=== PATIENT | male | born 1945 | race Caucasian/White ===

== ENCOUNTER 2016-11-22 15:00 | Inpatient (IN) | payer MEDICARE, OTHER ==
[~2016-11-22] VITALS: Ht 185.4 cm; Wt 94.0 kg
--- NOTE | ~2016-11-22 | HP ---
PATIENT'S NAME: KUN TRIVEDI [facility] AGE: 71 Y [address] ROOM: [place] [address] LOCATION: CU ADMIT DATE: 11/22/2016 History & Physical DISCHARGE DATE: FAMILY PHYSICIAN: PHYSICIAN, UNKNOWN ATTENDING PHYSICIAN: Gemini LEOS DATE OF SERVICE: CHIEF COMPLAINT: GI bleed. 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 The patient presented to [facility] with few-day history of dark stool, shortness of breath, weakness, and back pain. In the emergency department, the patient was noted to have hemoglobin of 5.3. The patient was given 2 units packed red blood cell and was transferred to our hospital for GI evaluation. En route to our hospital, the patient was noted to have coffee-grounds emesis x2. The patient reports that for the past 10 days he has been having some dark stool. He denies any use of NSAID. He currently takes aspirin and Xarelto for his coronary artery disease and atrial flutter. The patient also reports of some lower back pain that radiates to his groin area. He reports that he has been having this pain for the past week or so. He reports that he thought this was due to his new medication of Entresto. The patient denies fever, chest pain, abdominal pain, headache, orthopnea, lower extremity edema, productive cough, or fall. Of note, the patient has a history of atrial flutter and was ablated in the past. However, the patient failed ablation and had recent ICD shock in May and was found to have atrial flutter and was started on Xarelto. He takes 20 mg of Xarelto daily. Last dose taken yesterday evening. MEDICAL HISTORY: 1. Coronary artery disease. 2. Ischemic cardiomyopathy. 3. Atrial flutter. 4. Diabetes mellitus type 2. 5. Gout. SURGICAL HISTORY: 1. CABG. 2. Ablation. 3. WILDLIFE REMOVAL SPECIALIST-D placement. PATIENT'S NAME: KUN TRIVEDI [facility] AGE: 71 Y [address] ROOM: [place] [address] LOCATION: GICU ADMIT DATE: 11/22/2016 History & Physical DISCHARGE DATE: FAMILY PHYSICIAN: PHYSICIAN, UNKNOWN ATTENDING PHYSICIAN: Gemini LEOS FAMILY HISTORY: Father of coronary artery disease. 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 He is a former smoker, quit in 2003. He denies current use of alcohol. His last alcohol use was in 2009. He has three kids, lives with his , and he has seven grandchildren. ALLERGY: No known drug allergies. MEDICATION: He takes, 1. Xarelto 15 mg. 2. Furosemide 20 mg. 3. Lipitor 40 mg. 4. Coreg 25 mg. 5. Takes DuoNeb as needed. 6. Tylenol 50 mg. 7. Aspirin 80 mg. 8. Entresto 25/26 one tab twice a day. 9. Amaryl 2 mg. 10. Spironolactone 25 mg. 11. Flonase. 12. Allopurinol 300 mg a day. REVIEW OF SYSTEMS: All systems have been reviewed and are negative except for what mentioned in the HPI. PHYSICAL EXAMINATION: VITAL SIGNS: Afebrile, blood pressure 96/41, heart rate of 70, saturating 99% on room air, respiratory rate of 12. GENERAL APPEARANCE: The patient is alert and awake, in no acute distress. HEAD: Normocephalic, atraumatic. NOSE: The patient has NG tube placement draining coffee-grounds emesis mixed with some bright blood. ORAL: Throat, dry oral mucosa. NECK: No JVD. CHEST: Clear to auscultation bilaterally. HEART: Regular rate and rhythm. No MRG. ABDOMEN: Soft, nontender, and nondistended. Bowel sounds present. SKIN: Warm to touch. No obvious skin lesion noted. EXTREMITY: No edema. PATIENT'S NAME: KUN TRIVEDI [facility] AGE: 71 Y [address] ROOM: [place] [address] LOCATION: GICU ADMIT DATE: 11/22/2016 History & Physical DISCHARGE DATE: FAMILY PHYSICIAN: PHYSICIAN, UNKNOWN ATTENDING PHYSICIAN: Gemini LEOS GENERATION MANAGER: Alert and oriented x3. Motor and sensory grossly intact. MUSCULOSKELETAL: Range of motion intact. No obvious effusion noted. LABORATORY DATA: The patient's initial hemoglobin at [facility] was 5.3, he received 2 units of packed red blood cells. Hemoglobin level after transfusion is 7.2 with hematocrit of 23.4 and white blood cell count of 11.8, platelets of 231. Lactate of 3.8. ProBNP of 595. BUN of 105, creatinine of 1.7, sodium of 142, potassium 5.1, chloride of 111, CO2 of 19, and calcium of 7.9. Albumin of 3. EKG shows paced with no obvious ischemic ST and T-wave changes. Chest x-ray shows mild left basilar atelectasis. ASSESSMENT AND PLAN: The patient is a 71-year-old, pleasant gentleman with past medical history of coronary artery disease, status post bypass and PCI; CHF with systolic dysfunction with WILDLIFE REMOVAL SPECIALIST-D; atrial flatter, discontinue Coumadin, on Xarelto, who presents here from outside hospital with GI bleed. Etiology of GI bleed most likely secondary to upper gastrointestinal bleed. 1. Anemia of blood loss, etiology secondary to upper GI bleed. The patient presented with a hemoglobin of 5.3, etiology secondary to Xarelto use and aspirin. From the history as the patient complained of some vague back pain radiating to the abdomen, the patient might have peptic ulcer disease causing his GI bleed. The patient currently on Protonix drip and octreotide drip. Withholding aspirin and Xarelto. Transfusion, the patient has had 2 units of packed red blood cells. We will also transfuse 3 more packed red blood cells. To keep hemoglobin between 9 to 10 as the patient has significant history of coronary artery disease. GI is consulted. The patient is scheduled for possible EGD this evening. The patient currently stable. NG tube shows coffee-ground emesis mixed with some bright red blood cell. We will continue H and H. We will check H and H 1 hour after transfusion and also to check H and H every 6 hours. 2. Gastrointestinal bleed. See above. 3. Ischemic cardiomyopathy. The patient currently is appears compensated. ProBNP is elevated, but when age adjusted, it is normal for age. We will keep the patient on continuous O2 saturation monitoring and frequent physical examination. We will hold any hypertensive medication or heart failure medication for now. We will follow the patient closely. 4. Coronary artery disease, status post PCI and CABG. Last aspirin use yesterday. EKG does not show any ischemic changes. The patient denies of chest pain. We will hold aspirin for now until EGD is done and region has been re-evaluated. 5. Atrial flutter. Holding Xarelto due to ongoing GI bleed. 6. Diabetes mellitus type 2. We will hold Amaryl. We will have the patient PATIENT'S NAME: KUN TRIVEDI [facility] AGE: 71 Y [address] ROOM: [id number] [place], [place] [address] LOCATION: [facility] ADMIT DATE: 11/22/2016 History & Physical DISCHARGE DATE: FAMILY PHYSICIAN: PHYSICIAN, UNKNOWN ATTENDING PHYSICIAN: Gemini LEOS on a.c., h.s., and sliding scale insulin. The patient currently n.p.o. 7. Acute kidney injury. The patient's creatinine in the past is 1. At outside hospital, his creatinine was 1.9 and currently 1.7. Etiology most likely secondary to prerenal due to anemia. We will treat underlying etiology. 8. Gout. Stable. Holding allopurinol. 9. Chronic obstructive pulmonary disease, stable. Will have DuoNeb as needed. I have personally reviewed the patient's medical record including but not limited to blood work and radiology report. Total time spent with the patient is greater than 60 minutes, more than 50% of the time spent in direct patient care and patient consultation. Case reviewed with the patient. The patient understands the risk of stopping aspirin and Xarelto. Case was also discussed with nursing staff. All questions were answered to the patient's satisfaction. Case also was discussed with GI nurse practitioner. The patient currently admitted in the ICU, will continue treatment stated as above, to have EGD this a.m.; if EGD unrevealing, might consider other venues including CT abdomen with contrast as a diagnostic and therapeutic with IR. MD ALEKSANDR ROACH/farideh /[id number] T: [id number] HISTORY & PHYSICAL
--- NOTE | ~2016-11-22 | DS ---
PATIENT'S NAME: KUN TRIVEDI [facility] AGE: 71 Y [address] ROOM: [id number] [place], [place] [address] LOCATION: GPCU ADMIT DATE: 11/22/2016 Discharge Summary DISCHARGE DATE: 11/26/2016 FAMILY PHYSICIAN: Jose Franz MD ATTENDING PHYSICIAN: Gemini LEOS PRINCIPAL DIAGNOSES: 1. Acute blood loss anemia. 2. Upper gastrointestinal bleed. 3. Acute kidney injury. 4. Heart failure with reduced ejection, compensated, status post cardiac resynchronization therapy defibrillator. 5. Type 2 diabetes mellitus. 6. Obstructive sleep apnea. 7. Atrial flutter with controlled ventricular rates. HOSPITAL COURSE: A 71-year-old very pleasant gentleman was admitted to the hospital with chief complaint of melena and hematemesis. On initial evaluation, he was found to be in acute blood loss anemia with a hemoglobin around 6 as well as MAHOGANY with creatinine elevating to 1.8. He was gently volume hydrated and was given packed red blood cells transfusions. Gastroenterology consultation was obtained; and an upper endoscopy was done, which did reveal Dieulafoy's lesion in the stomach, which was injected with epinephrine and later another upper endoscopy was done and he was clipped in that lesion. Postprocedurally, he done well. His creatinine improved. He did not have anymore melena or hematemesis. His hemoglobin remained stable. We restarted him on Xarelto per GI consultation. He was given 2 units of packed red blood cells before discharge because he was at increased risk of bleeding from his lesion being on Xarelto. He will follow up with his primary care physician tomorrow with a hemoglobin as well as a BMP to check for the creatinine. No medication changes were made on the discharge except addition of Protonix 40 mg p.o. b.i.d. DISCHARGE MEDICATIONS: Include: 1. Allopurinol 300 mg p.o. everyday. 2. Lipitor 40 mg p.o. everyday. 3. Carvedilol 25 mg p.o. every morning. 4. Fluticasone Flonase 50 mcg puff inhalation 1 spray per nose everyday. 5. Fexofenadine 180 mg p.o. every morning. 6. Xarelto 15 mg p.o. everyday. 7. Torsemide 40 mg p.o. every morning. 8. Spironolactone 25 mg p.o. everyday. 9. DuoNebs inhalation twice daily. 10. Tylenol 1000 mg p.o. every 6 hours for pain. 11. Aspirin 81 mg p.o. everyday. PATIENT'S NAME: KUN TRIVEDI [facility] AGE: 71 Y [address] ROOM: [place] [address] LOCATION: GPCU ADMIT DATE: 11/22/2016 Discharge Summary DISCHARGE DATE: 11/26/2016 FAMILY PHYSICIAN: Jose Franz MD ATTENDING PHYSICIAN: Gemini LEOS 12. Entresto 24 mg/26 mg 1 tablet p.o. twice daily. 13. Glimepiride 2 mg p.o. twice daily. 14. New medication Protonix 40 mg p.o. b.i.d. HEMODYNAMICS ON DISCHARGE: Stable. ACTIVITY: As tolerated. DIET: Cardiac diet. FOLLOW UP: Follow up with the primary care physician tomorrow with a BMP and a CBC. The risk of bleeding was explained to the patient given he is on Xarelto. The patient accepted the risks and wanted to go ahead and start the Xarelto, which was started in consultation with Gastroenterology. Total time spent in discharge planning and coordinating as well providing counselling to patient specially regarding high risk of bleeding by being on Xarelto was 35 minutes. MD LUANN NIELSEN/farideh /[id number] d: 11/27/16 0048 t: 12/06/16 1243, DISCHARGE SUMMARY
--- NOTE | ~2016-11-22 | CON ---
PATIENT'S NAME: KUN TRIVEDI [facility] AGE: 71 Y [address] ROOM: [address] [address] LOCATION: GICU ADMIT DATE: 11/22/2016 Consultation DISCHARGE DATE: FAMILY PHYSICIAN: PHYSICIAN, UNKNOWN ATTENDING PHYSICIAN: Gemini LEOS DATE OF CONSULTATION: 11/22/2016 REFERRING PHYSICIAN: LISETH DEVRIES MD REFERRING PROVIDER: Estefany Singletary M.D. REASON FOR CONSULTATION: Upper GI bleed. HISTORY OF PRESENT ILLNESS: This is a very pleasant, 71-year-old male, who was transferred from [facility]. The patient states that over the past 10 days he has been experiencing black tarry stools accompanied with back pain that began approximately 2 days ago. At that time, he did experience hematemesis that was coffee ground in appearance. He previously had been seen by his Cardiology as he does have history of CABG as well as cardiac stents and pacemaker placement and is on Xarelto. At that time, approximately a week ago, he was noted to have a "low hemoglobin" per the family with mixed reports with his hemoglobin running at 10. When he was evaluated at the outside facility, his hemoglobin was found to be 5.3. While being evaluated at the outside facility, he did have a large another emesis that was more bright red in color. The patient was then transferred to [facility] for further evaluation. The patient was seen and examined. He does have an NG tube to low intermittent suction at this point that is maroon and alicia blood colored. He denies any alicia abdominal pain. No associated nausea or vomiting at this time. The patient is hemodynamically stable. He denies any history of an upper endoscopy. He does state that he had a colonoscopy greater than 10 years ago with polyps removed. His last Xarelto dose was approximately a day ago. He also states that his bean sprout laborer put him on Entresto as well as changed his Lasix; as he does contribute most of his symptoms to this. Currently denies any chest pain or chest pressure. He did experience lightheadedness at home. He currently has been placed on Protonix and octreotide drip. PAST MEDICAL HISTORY: Hypercholesterolemia, hypertension, history of cardiac stents, history of CABG, congestive heart failure, AICD defibrillator placement, and history of myocardial infarction. He does wear home oxygen as well as a CPAP at night. PATIENT'S NAME: KUN TRIVEDI [facility] AGE: 71 Y [address] ROOM: [id number] [place], [place] [address] LOCATION: GICU ADMIT DATE: 11/22/2016 Consultation DISCHARGE DATE: FAMILY PHYSICIAN: PHYSICIAN, UNKNOWN ATTENDING PHYSICIAN: Gemini LEOS COPD, arthritis, skin cancer removed from his nose in 2003, diabetes mellitus type 2, and CAD. PAST SURGICAL HISTORY: CABG, 2-vessel; cardiac stents x3; "kidney stone blast"; AICD/pacemaker placement with 4 different surgeries; and colonoscopy greater than 10 years ago with polyps removed. He denies any history of upper endoscopy. Skin cancer also removed from his nose in 2003. SOCIAL HISTORY: The patient denies any current tobacco, alcohol, or illicit drug use. Per the patient's family, they do state that he was heavy into alcohol, though denies any alcohol use over the past 10 years. FAMILY HISTORY: The patient's father had myocardial infarction. The patient's mother had cancer. He has 2 brothers who are diabetic with heart disease. He denies any alicia gastrointestinal diseases. ALLERGIES: NO KNOWN MEDICATION ALLERGIES. CURRENT MEDICATIONS: Please refer to the medication administration record. REVIEW OF SYSTEMS: A 10-point review of systems was completed, all were negative except for those identified in the history of present illness. PHYSICAL EXAMINATION: GENERAL: A very pleasant, 71-year-old male, lying in bed, who appears to be in no acute distress. VITAL SIGNS: Temperature 96.8, pulse is 70, respirations 17, blood pressure 101/45, and oxygen saturations 100% on 2 L. SKIN: [place], warm, dry. No jaundice. HEENT: Head is normocephalic and atraumatic. Pupils are equal, round, and reactive to light. Sclerae are clear. Nonicteric. Oral mucosa is pink and moist. No thyromegaly. NECK: Soft and supple. CARDIOVASCULAR: Regular. Normal S1, S2. RESPIRATORY: Respirations even and unlabored. Lungs clear to auscultation, slightly diminished in the bilateral lobes. ABDOMEN: Soft, round, nontender, nondistended. Bowel sounds positive x4 quadrants. NG tube to low intermittent suction is putting out alicia red blood. PATIENT'S NAME: KUN TRIVEDI [facility] AGE: 71 Y [address] ROOM: [place] [address] LOCATION: GICU ADMIT DATE: 11/22/2016 Consultation DISCHARGE DATE: FAMILY PHYSICIAN: PHYSICIAN, UNKNOWN ATTENDING PHYSICIAN: Gemini LEOS MUSCULOSKELETAL: No muscle weakness or atrophy. EXTREMITIES: No clubbing or cyanosis. 1+ edema noted to bilateral lower extremities. NEUROLOGIC: Grossly nonfocal. LABS AND DIAGNOSTICS: At the outside facility, the patient's hemoglobin was found to be 5.3, a recheck of his hemoglobin approximately 2 units of blood given was 7.2; white blood cell count of 11.8; hematocrit of 23.4; and platelets of 231. Chemistry panel includes a glucose of 192, BUN of 105, creatinine 1.7, sodium 142, potassium of 5.1, chloride of 111, CO2 of 19, albumin of 3.0, AST of 9, ALT of 18, alkaline phosphatase of 47, total bilirubin 0.7, direct bilirubin 0.2, protime 18.4, INR is 1.74. Chest x-ray completed on admission showed minor left basilar atelectasis. ASSESSMENT AND PLAN: Again, this is a very pleasant, 71-year-old male, who was currently transferred to us for definitive care with upper gastrointestinal bleed. The patient has reported melena stool for approximately 10 days. He began having hematemesis as well as was found to be anemic with a hemoglobin of 5.3. At this time, it is recommended for the patient to continue the Protonix drip as well as the octreotide. We will plan for an upper endoscopy for further evaluation of the patient's gastrointestinal bleed. We will also give him erythromycin to empty stomach prior to procedure. Risks, benefits, and alternatives of the procedure were discussed with the patient per Dr. Herbert Toledo. Further recommendations to be given status post upper endoscopy. Thank you for this consult and allowing us to participate in the care of this patient. We will continue to monitor, evaluate, and treat as appropriate. MALINDA PITTS MD MMF/modl /[id number] d: 11/23/16 0218 t: 11/30/16 1358, CONSULTATION REPORT
--- NOTE | ~2016-11-22 | OR ---
PATIENT'S NAME: KUN TRIVEDI [facility] AGE: 71 Y [address] ROOM: [place] [address] LOCATION: GICU ADMIT DATE: 11/22/2016 OR/Procedure Report DISCHARGE DATE: FAMILY PHYSICIAN: Jose Franz MD ATTENDING PHYSICIAN: Gemini LEOS SURGEON: Ceasar Toledo MD FORENSIC ARTIST: DATE OF PROCEDURE: 11/23/2016 PROCEDURE PERFORMED: Esophagogastroduodenoscopy with epinephrine injection and Hemoclip placement. INDICATION: Upper GI bleeding. MEDICATIONS: Please see Anesthesiology record for details. CONSENT: The risks/benefits/alternatives were discussed and the patient or his power of collections attorney expressed understanding and agreed to proceed. Informed consent was obtained and placed in the chart. Time-out was completed prior to starting the procedure. DESCRIPTION OF PROCEDURE: Patient was placed in the left lateral decubitus position. One-lead EKG monitoring was used along with intermittent blood pressure monitoring and pulse oximetry. Bite block was placed in the patient's mouth. The above medications were given and titrated to response. Once adequate sedation was completed, the endoscope was passed through the patient's mouth into the posterior oropharynx. The endoscope was then passed into the esophagus, stomach and duodenal bulb. The duodenum was examined through the third portion. The endoscope was then withdrawn into the stomach. In the stomach, retroflexion was completed. The scope was then straightened and withdrawn from the patient. The patient tolerated the procedure well. There were no complications. SUMMARY OF FINDINGS: 1. Normal esophagus. 2. No blood seen in the stomach on detailed evaluation of the area that was in question from yesterday's exam. I was able to find a small clot over an artery in the fundus. This blood vessel was treated with epinephrine injection and Hemoclip placement. 3. Normal duodenum. ASSESSMENT AND PLAN: Upper gastrointestinal bleeding: The patient had a Dieulafoy lesion in the fundus that had stopped bleeding overnight. It is possible that the epinephrine from last night helped, and just holding the Xarelto also helped. Today, I was blake to see the area much better as there PATIENT'S NAME: KUN TRIVEDI [facility] AGE: 71 Y [address] ROOM: [place] [id number] LOCATION: GICU ADMIT DATE: 11/22/2016 OR/Procedure Report DISCHARGE DATE: FAMILY PHYSICIAN: Jose Franz MD ATTENDING PHYSICIAN: Angel LEOSwe was no blood in the way, and I could get closer using a pediatric colonoscope. The lesion was treated with epinephrine injection and Hemoclip placement. No further bleeding noted. I recommend keeping him on a PPI drip today in the hospital, and it is okay to start clear liquids. If his hemoglobin continues to remain stable, he can be discharged early tomorrow. He is at high risk for rebleeding with Xarelto; however, since this lesion has been treated, I do not suspect it would be the source. Therefore, he will have to discuss the risks and benefits of anticoagulation with his child and family therapist. At this time, I would be okay with him retrying anticoagulation; however, in the event of another bleeding episode, would advice against it. J MD MYLES KLINE/modl /[id number] CC: MD Sherry Elizondo MD d: 11/23/16 1330 t: 11/27/16 1431, OPERATIVE SUMMARY
--- NOTE | ~2016-11-22 | OR ---
PATIENT'S NAME: KUN TRIVEDI [facility] AGE: 71 Y [address] ROOM: [address] [address] LOCATION: GICU ADMIT DATE: 11/22/2016 OR/Procedure Report DISCHARGE DATE: FAMILY PHYSICIAN: PHYSICIAN, UNKNOWN ATTENDING PHYSICIAN: Gemini LEOS SURGEON: Ceasar Toledo MD FURNITURE MOVER HELPER: DATE OF PROCEDURE: 11/22/2016 PROCEDURE: Esophagogastroduodenoscopy. INDICATION: Suspected upper GI bleeding. MEDICATIONS: Please see anesthesiology record for details. CONSENT: The risks/benefits/alternatives were discussed and the patient or his power of workers compensation defense attorney expressed understanding and agreed to proceed. Informed consent was obtained and placed in the chart. Time-out was completed prior to starting the procedure. PROCEDURE: Patient was placed in the left lateral decubitus position. One- lead EKG monitoring was used along with intermittent blood pressure monitoring and pulse oximetry. Bite block was placed in the patient's mouth. The above medications were given and titrated to response. Once adequate sedation was completed, the endoscope was passed through the patient's mouth into the posterior oropharynx. The endoscope was then passed into the esophagus, stomach and duodenal bulb. The duodenum was examined through the third portion. The endoscope was then withdrawn into the stomach. In the stomach, retroflexion was completed. The scope was then straightened and withdrawn from the patient. The patient tolerated the procedure well. There were no complications. SUMMARY OF FINDINGS: 1. Normal esophagus: Upon entering the stomach, there was fresh red blood along with some dark blood. No ulcers were seen. The stomach was irrigated thoroughly, suctioned, cleaned out, and eventually it appeared that there was a slight ooze coming from the area of the fundus. Due to the location of the bleeding in the fundus, I was unable to angulate the upper endoscope to this area close enough to suction completely. I did spend significant amount of time irrigating the area and could not see any underlying ulcer or blood vessel. I elected to inject epinephrine blindly in multiple areas under a thin layer of blood. Therefore, I am not sure how much was actually injected. However, this did appear to just slow the bleeding. 2. Duodenum with some fresh blood. This was washed. No underlying lesions PATIENT'S NAME: KUN TRIVEDI [facility] AGE: 71 Y [address] ROOM: [address] [address] LOCATION: GICU ADMIT DATE: 11/22/2016 OR/Procedure Report DISCHARGE DATE: FAMILY PHYSICIAN: PHYSICIAN, UNKNOWN ATTENDING PHYSICIAN: Gemini LEOS were seen. No evidence of active bleeding. ASSESSMENT: Upper gastrointestinal bleeding: The patient appears to be bleeding from an area in the fundus of the stomach. Given his anatomy and the location of the fundus, this area is very difficult to treat endoscopically. I am unable to currently see any underlying lesion such as an ulcer or arteriovenous malformation or blood vessel. My suspicion is that this is a Dieulafoy lesion. I did inject epinephrine and the bleeding has slowed and possibly even stopped as there was no rapid reaccumulation. I do think we should monitor his hemoglobin closely overnight q.4 hours and transfuse if needed if hemoglobin is less than 7.5. PLAN: I will plan to reevaluate him in the morning if his hemoglobin has been dropping. If I am unable to treat the area successfully at that time, then he will need evaluation by Interventional Radiology. J MD MYLES KLINE/farideh /[id number] d: 11/23/16 0221 t: 11/27/16 1428, OPERATIVE SUMMARY
[2016-11-22 15:31] LABS: BASOPHIL # 0.1 K/uL (0.0-0.2); BASOPHIL % 0.4 %; EOSINOPHIL % 0.2 %; HEMATOCRIT 23.4 % (37.0-53.0); IMMATURE GRANULOCYTE # 0.1 K/uL (0.0-0.3); IMMATURE GRANULOCYTE % 0.9 %; LYMPHOCYTE # 1.1 K/uL (0.8-4.0); LYMPHOCYTE % 9.2 %; MCHC 30.8 gm/dL (32.0-36.5); MCV 89.3 fl (83.0-98.0); MONOCYTE # 0.5 K/uL (0.0-1.0); MONOCYTE % 4.5 %; MPV 11.8 fl (9.4-12.4); NEUTROPHIL % 84.8 %; NRBC % 0.3 /100WBC (0-0.00); PLATELET COUNT 231 K/uL (150-450); RDW-CV 17.3 % (11.9-14.6); WBC 11.8 K/uL (4.0-11.0)
[2016-11-22 15:32] LABS: HEMOGLOBIN 7.2 g/dL (11.0-16.0); MCH 27.5 pg (27.0-34.0); RBC 2.62 M/uL (3.50-5.50)
[2016-11-22 15:40] LABS: INR - (THERAPEUTIC) 1.74 (0.92-1.07); PROTIME 18.4 SECONDS (9.8-11.4)
[2016-11-22 15:55] LABS: ANION GAP 17.1 (10.0-19.0); CALCIUM 7.9 mg/dL (8.5-10.5); CREATININE 1.7 mg/dL (0.6-1.3); POTASSIUM 5.1 mMol/L (3.7-5.1)
[2016-11-22] MEDS ORDERED: XARELTO15 MG PO (16:00)
[2016-11-22 16:01] LABS: TOTAL BILIRUBIN 0.7 mg/dL (0.0-1.5); TOTAL PROTEIN 5.4 g/dL (6.0-8.4)
[2016-11-22] MEDS ORDERED: LIPITOR40 MG PO (16:01)
[2016-11-22] MEDS ORDERED: DEMADEX20 MG PO (16:01)
[2016-11-22] MEDS ORDERED: COREG25 MG PO (16:02)
[2016-11-22] MEDS ORDERED: ASPIRIN LO-DOSE81 MG PO (16:03)
[2016-11-22] MEDS ORDERED: TYLENOL EXTRA500 MG PO (16:03)
[2016-11-22] MEDS ORDERED: DUONEB INH (16:03)
[2016-11-22] MEDS ORDERED: ENTRESTO 24 MG1 EACH PO (16:04)
[2016-11-22] MEDS ORDERED: ALLEGRA180 MG PO (16:04)
[2016-11-22] MEDS ORDERED: AMARYL2 MG PO (16:05)
[2016-11-22] MEDS ORDERED: ALDACTONE25 MG PO (16:05)
[2016-11-22] MEDS ORDERED: FLONASE 50 MCG/16 GM NOSE (16:06)
[2016-11-22] MEDS ORDERED: ZYLOPRIM300 MG PO (16:06)
--- NOTE | 2016-11-22 19:32 | NUR ---
Significant Event:Ptient admitted via [facility] at 1455. Active bloody, coffee ground emesis, NG places to LIS, Octreotide et Protonix gtts started, VSS. RA. NPO, swabs ok. 4 of 5 units PRBC's given Follow up:EGD planned this evening
[2016-11-22 20:53] LABS: HEMOGLOBIN 9.1 g/dL (11.0-16.0)
[2016-11-22 20:54] LABS: HEMATOCRIT 28.2 % (37.0-53.0)
[2016-11-23 00:24] LABS: HEMATOCRIT 26.9 % (37.0-53.0); HEMOGLOBIN 8.7 g/dL (11.0-16.0)
[2016-11-23 05:19] LABS: HEMATOCRIT 26.4 % (37.0-53.0); HEMOGLOBIN 8.4 g/dL (11.0-16.0)
--- NOTE | 2016-11-23 05:26 | NUR ---
Significant Event: Pt is alert and orineted x3. Pupils are equal and reactive. Moves all extremities spontaneously and to command. Pt is paced with HR's in the 70's. EGD completed in room. Epi injected, but MD wanted to try again today. OG in place with 200 mls of bloody drainage out. Pt voids per urinal. No BM this shift. [address] Follow up: Possible EGD with interventional radiology today.
[2016-11-23 08:21] LABS: HEMATOCRIT 26.5 % (37.0-53.0); HEMOGLOBIN 8.5 g/dL (11.0-16.0)
[2016-11-23 11:25] LABS: HEMATOCRIT 25.4 % (37.0-53.0); HEMOGLOBIN 8.2 g/dL (11.0-16.0)
[2016-11-23 15:57] LABS: HEMATOCRIT 25.9 % (37.0-53.0); HEMOGLOBIN 8.2 g/dL (11.0-16.0)
[2016-11-23 16:16] LABS: ANION GAP 13.4 (10.0-19.0); CALCIUM 7.8 mg/dL (8.5-10.5); CREATININE 1.8 mg/dL (0.6-1.3); POTASSIUM 4.4 mMol/L (3.7-5.1)
[2016-11-23 22:16] LABS: HEMATOCRIT 24.3 % (37.0-53.0)
[2016-11-23 22:21] LABS: HEMOGLOBIN 7.6 g/dL (11.0-16.0)
[2016-11-24 03:58] LABS: BASOPHIL # 0.1 K/uL (0.0-0.2); BASOPHIL % 0.7 %; EOSINOPHIL # 0.2 K/uL (0.0-0.5); EOSINOPHIL % 3.1 %; HEMATOCRIT 23.5 % (37.0-53.0); HEMOGLOBIN 7.4 g/dL (11.0-16.0); IMMATURE GRANULOCYTE % 0.6 %; LYMPHOCYTE # 0.7 K/uL (0.8-4.0); LYMPHOCYTE % 10.1 %; MCH 28.7 pg (27.0-34.0); MCHC 31.5 gm/dL (32.0-36.5); MCV 91.1 fl (83.0-98.0); MONOCYTE # 0.6 K/uL (0.0-1.0); MONOCYTE % 9.2 %; MPV 10.8 fl (9.4-12.4); NEUTROPHIL # (ANC) 5.2 K/uL (1.4-9.0); NEUTROPHIL % 76.3 %; NRBC % 0 /100WBC (0-0.00); PLATELET COUNT 156 K/uL (150-450); RBC 2.58 M/uL (3.50-5.50); RDW-CV 18.3 % (11.9-14.6); WBC 6.9 K/uL (4.0-11.0)
[2016-11-24 04:11] LABS: ANION GAP 11.4 (10.0-19.0); CALCIUM 7.5 mg/dL (8.5-10.5); CREATININE 1.5 mg/dL (0.6-1.3); POTASSIUM 4.4 mMol/L (3.7-5.1)
--- NOTE | 2016-11-24 04:37 | NUR ---
Transferred from ICU at 1845. Admitted for GI bleed. Hgb started out at 5.2. Has rec'd total 5 units. H&H Q6H. Hgb trending down again. A&O. RA during day, bipap with 2 ltrs at [facility]. SBA. Protonix gtt infusing. Voids per urinal- stands at bedside. EGD done yesterday. Paced. Liquid diet. No c/o pain this shift.
[2016-11-24 10:37] LABS: HEMOGLOBIN 7.2 g/dL (11.0-16.0)
--- NOTE | 2016-11-24 13:20 | NUR ---
Introduced self and care management services to patient. Lives in [place] with , hoping to go home tomorrow. Denies concerns about going home, denies needs, will assist at home if needed.
[2016-11-24 16:15] LABS: HEMATOCRIT 23.3 % (37.0-53.0)
[2016-11-24 16:16] LABS: HEMOGLOBIN 7.3 g/dL (11.0-16.0)
--- NOTE | 2016-11-24 19:03 | NUR ---
Significant Event:UP WITH 1 ASSIST TO BR AND IN [place]JAS. HGB 7.2-7.4 THIS SHIFT. IV DC'D TO LEFT WRIST DUE TO REDNESS AND SWELLING EVEN THOUGH STILL HAD GOOD BLOOD RETURN. RESTARTED XARELTO THIS AFTERNOON. VERY FRIENDLY AND COOPERATIVE WITH CARES. Follow up:MONITOR H&H
[2016-11-24 22:04] LABS: HEMATOCRIT 23.6 % (37.0-53.0)
[2016-11-24 22:05] LABS: HEMOGLOBIN 7.4 g/dL (11.0-16.0)
[2016-11-25 04:24] LABS: HEMOGLOBIN 7.1 g/dL (11.0-16.0)
[2016-11-25 04:32] LABS: ANION GAP 12.3 (10.0-19.0); CALCIUM 7.7 mg/dL (8.5-10.5); CREATININE 1.2 mg/dL (0.6-1.3); POTASSIUM 4.3 mMol/L (3.7-5.1)
--- NOTE | 2016-11-25 05:05 | NUR ---
A&O. Q6 Hgb - this morning 7.1. Clear diet. SBA. PO protonix. Restarted Xarelto yesterday. No c/o pain. RA day, bipap with 2 lter at [facility]. Pacer.
[2016-11-25 10:27] LABS: HEMATOCRIT 21.8 % (37.0-53.0)
[2016-11-25 10:30] LABS: HEMOGLOBIN 6.6 g/dL (11.0-16.0)
[2016-11-25 10:59] LABS: HEMATOCRIT 22.4 % (37.0-53.0)
[2016-11-25 11:00] LABS: HEMOGLOBIN 6.9 g/dL (11.0-16.0)
[2016-11-25 15:52] LABS: HEMATOCRIT 24.1 % (37.0-53.0); HEMOGLOBIN 7.5 g/dL (11.0-16.0)
--- NOTE | 2016-11-25 16:43 | NUR ---
SIGNIFICANT EVENT: A&Ox3. Xarelto continued. Left sublcavian AICD. RA during day and Bipap with 2L at night. Lungs clear to clear/diminished. Continue to monitor for BM-bowels active. Rt wrist and Left AC saline locked. SBA. Q6h HGB: 7.1-6.6-6.9-7.5. Diabetic Diet. Pt has knowledge of call light and makes needs known. Cooperative with cares. Family at bedside this afternoon. FOLLOW UP: Continue to monitor HGB. Possible D/C tomorrow. Continue with plan of cares per MD orders.
[2016-11-25 22:14] LABS: HEMATOCRIT 22.5 % (37.0-53.0)
[2016-11-26 04:18] LABS: BASOPHIL % 0.4 %; EOSINOPHIL # 0.2 K/uL (0.0-0.5); EOSINOPHIL % 3.2 %; HEMATOCRIT 22.2 % (37.0-53.0); IMMATURE GRANULOCYTE % 0.4 %; LYMPHOCYTE # 0.7 K/uL (0.8-4.0); LYMPHOCYTE % 12.6 %; MCH 28.7 pg (27.0-34.0); MCHC 31.5 gm/dL (32.0-36.5); MONOCYTE # 0.5 K/uL (0.0-1.0); MONOCYTE % 9.8 %; MPV 10.1 fl (9.4-12.4); NEUTROPHIL # (ANC) 3.9 K/uL (1.4-9.0); NEUTROPHIL % 73.6 %; NRBC % 0.4 /100WBC (0-0.00); PLATELET COUNT 149 K/uL (150-450); RBC 2.44 M/uL (3.50-5.50); RDW-CV 17.9 % (11.9-14.6); WBC 5.3 K/uL (4.0-11.0)
[2016-11-26 04:32] LABS: CALCIUM 7.9 mg/dL (8.5-10.5); CREATININE 1.4 mg/dL (0.6-1.3)
--- NOTE | 2016-11-26 05:33 | NUR ---
Significant Event: PATIENT A/0 X 3, COOPERATIVE WITH CARES. HR PACED AROUND 70'S, SBP 101-122. AFEBRILE. NO BM OR BLEEDING DURING SHIFT. BOTH HGB'S HAVE CAME BACK AT 7.0, AT TIMES OF 2200 AND 0400. HAS NOT COMPLAINED OF PAIN OR ANY COMPLICATIONS DURING ENTIRE SHIFT. HAS RESTED WELL. Follow up:
[2016-11-26 09:12] LABS: HEMATOCRIT 23.4 % (37.0-53.0)
[2016-11-26 09:13] LABS: HEMOGLOBIN 7.1 g/dL (11.0-16.0)
[2016-11-26] MEDS ORDERED: PROTONIX40 MG PO (13:31)
[2016-11-26 16:20] LABS: BASOPHIL % 0.5 %; EOSINOPHIL # 0.2 K/uL (0.0-0.5); EOSINOPHIL % 3.2 %; IMMATURE GRANULOCYTE % 0.5 %; LYMPHOCYTE # 0.7 K/uL (0.8-4.0); LYMPHOCYTE % 12.2 %; MCHC 31.6 gm/dL (32.0-36.5); MCV 91.3 fl (83.0-98.0); MONOCYTE # 0.6 K/uL (0.0-1.0); MONOCYTE % 10.5 %; MPV 10.9 fl (9.4-12.4); NEUTROPHIL # (ANC) 4.3 K/uL (1.4-9.0); NEUTROPHIL % 73.1 %; NRBC % 0 /100WBC (0-0.00); PLATELET COUNT 175 K/uL (150-450); RDW-CV 17.4 % (11.9-14.6); WBC 5.9 K/uL (4.0-11.0)
[2016-11-26 16:21] LABS: HEMATOCRIT 28.5 % (37.0-53.0); MCH 28.8 pg (27.0-34.0); RBC 3.12 M/uL (3.50-5.50)
[2016-11-26 16:37] LABS: ANION GAP 12.8 (10.0-19.0); CALCIUM 7.5 mg/dL (8.5-10.5); CREATININE 1.4 mg/dL (0.6-1.3); POTASSIUM 3.8 mMol/L (3.7-5.1)
--- NOTE | 2016-11-26 17:10 | NUR ---
A&O. 2 UNIT PRB BEFORE DC. INSTUCTIONS REVIEWED QUESTIONS ANSWERED. VSS. LS CL/DIM. LASIX VD 2200. NO BM. AND SON AT BEDSIDE. DC IV PRIOR TO DC LEFT AT 1700
[2016-12-11] MEDS ORDERED: TRIAMCINOLONE A60 M1 TOP (13:44)
[2016-12-11] MEDS ORDERED: K-TAB ER20 MEQ PO (13:58)
[2017-01-25] MEDS ORDERED: POTASSIUM CHLO20 ME1 PO (08:57)
[2017-01-25] MEDS ORDERED: BIPAP INH (09:28)
[2017-01-25] MEDS ORDERED: OXYGEN M-15 INH (09:28)
== END 2016-11-26 17:15 | disposition disaster alternative care site (69) | DRG 378 ==
LOC: GICU 15:07 → GPCU 11-23 18:43
PROVIDERS: Internal Medicine; Internal Medicine Gastroenterology; ADMIT Internal Medicine
PROC: 30233N1 Transfusion of Nonautologous Red Blood Cells into Peripheral Vein, Percutaneous Approach (ICD-10-PCS; principal; 2016-11-22)
PROC: 3E0G8GC Introduction of Other Therapeutic Substance into Upper GI, Via Natural or Artificial Opening Endoscopic (ICD-10-PCS; 2016-11-23)
PROC: 0DJ08ZZ Inspection of Upper Intestinal Tract, Via Natural or Artificial Opening Endoscopic (ICD-10-PCS; 2016-11-23)
DX: K92.2 Gastrointestinal hemorrhage, unspecified (principal); D62 Acute posthemorrhagic anemia; N17.9 Acute kidney failure, unspecified; I48.92 Unspecified atrial flutter; I50.22 Chronic systolic (congestive) heart failure; I50.9 Heart failure, unspecified; E11.9 Type 2 diabetes mellitus without complications; I10 Essential (primary) hypertension; I25.10 Atherosclerotic heart disease of native coronary artery without angina pectoris; I25.2 Old myocardial infarction; I25.5 Ischemic cardiomyopathy; J44.9 Chronic obstructive pulmonary disease, unspecified; M10.9 Gout, unspecified; Z95.1 Presence of aortocoronary bypass graft; G47.33 Obstructive sleep apnea (adult) (pediatric); Z79.01 Long term (current) use of anticoagulants; K31.82 Dieulafoy lesion (hemorrhagic) of stomach and duodenum; Z87.891 Personal history of nicotine dependence
CPT/HCPCS: C9113; J0171; J1364; J1940; J2354; J7030; J7040; J7050; P9016

== ENCOUNTER → 2016-11-22 | Outpatient (CLI) | payer MEDICARE, OTHER ==
[~2016-11-22] MED LIST: ALDACTONE25 MG PO; ALLEGRA180 MG PO; AMARYL2 MG PO; ASPIRIN LO-DOSE81 MG PO; BIPAP INH; COREG25 MG PO; DEMADEX20 MG PO; DUONEB INH; ELIQUIS2.5 MG PO; ENTRESTO 24 MG1 EACH PO; FEOSOL325 MG PO; FLONASE 50 MCG/16 GM NOSE; K-TAB ER20 MEQ PO; LIPITOR40 MG PO; OXYGEN M-15 INH; POTASSIUM CHLO20 ME1 PO; PROTONIX40 MG PO; TRIAMCINOLONE A60 M1 TOP; TYLENOL EXTRA500 MG PO; XARELTO15 MG PO; ZYLOPRIM300 MG PO
== END | disposition disaster alternative care site (69) ==
LOC: GAIR 14:27
DX: M54.9 Dorsalgia, unspecified (principal); M54.5 Low back pain; E78.5 Hyperlipidemia, unspecified; E11.9 Type 2 diabetes mellitus without complications; J44.9 Chronic obstructive pulmonary disease, unspecified; G47.30 Sleep apnea, unspecified; I25.5 Ischemic cardiomyopathy; R00.1 Bradycardia, unspecified; K92.0 Hematemesis; Z95.1 Presence of aortocoronary bypass graft; Z79.82 Long term (current) use of aspirin; Z99.81 Dependence on supplemental oxygen; Z79.899 Other long term (current) drug therapy
CPT/HCPCS: A0422; A0431; A0436; J2405

== ENCOUNTER → 2016-12-18 | Day surgery (SDC) | payer MEDICARE, OTHER ==
[~2016-12-18] VITALS: Ht 185.4 cm; Wt 89.1 kg
== END | disposition disaster alternative care site (69) ==
LOC: GPOC 12-05 13:00 → GEND 07:08 → GPOC 07:30
PROC: 0DJD8ZZ Inspection of Lower Intestinal Tract, Via Natural or Artificial Opening Endoscopic (ICD-10-PCS; principal; 2016-12-18)
DX: K92.2 Gastrointestinal hemorrhage, unspecified (principal); D50.0 Iron deficiency anemia secondary to blood loss (chronic); K57.30 Diverticulosis of large intestine without perforation or abscess without bleeding; I25.10 Atherosclerotic heart disease of native coronary artery without angina pectoris; I48.91 Unspecified atrial fibrillation; I25.5 Ischemic cardiomyopathy; E11.9 Type 2 diabetes mellitus without complications; J44.9 Chronic obstructive pulmonary disease, unspecified; N17.9 Acute kidney failure, unspecified; M10.9 Gout, unspecified; Z87.891 Personal history of nicotine dependence; Z98.890 Other specified postprocedural states
CPT/HCPCS: J1610; J2001; J7030

== ENCOUNTER 2017-01-03 10:57 | Inpatient (IN) | payer MEDICARE, OTHER ==
[~2017-01-03] VITALS: Ht 185.4 cm; Wt 89.6 kg
--- NOTE | ~2017-01-03 | HP ---
PATIENT'S NAME: KUN TRIVEDI [facility] AGE: 71 Y [address] ROOM: [place] [address] [facility] AD[facility] DATE: 01/03/2017 History & Physical DISCHARGE DATE: FAMILY PHYSICIAN: Jose Franz MD ATTENDING PHYSICIAN: JACKY CHAMORRO DATE OF SERVICE: CHIEF COMPLAINT: Acute upper GI bleed. HISTORY OF PRESENT ILLNESS: This is a 71-year-old male with history of severe systolic CHF, paroxysmal atrial fibrillation on Xarelto, hypertension, type 2 diabetes, and recurrent admissions for upper GI bleed. He presented with upper GI bleed again. The patient initially presented to [facility] with complaints of having dark-looking stools for several days. The patient, on presentation there, had been hemodynamically stable and was observed. On admission, his hemoglobin there was 8.9, and the patient continued to have dark-looking stools including a hemoglobin drop to 7.3 as of earlier this morning. The patient tells me today that he had been having bowel movements for at least one week, and attributed to something maybe he has been eating. Otherwise, the patient denied any dizziness, lightheadedness, chest pain, shortness of breath, nausea, vomiting, diarrhea, or constipation. He also denied any fever or chills. The patient also denied any abdominal pain related to this as well. The patient had been taking Xarelto and baby aspirin daily regularly. Of note, the patient had just been released from hospital in October after a similar presentation, and was found to have a bleeding vessel in the fundus of the stomach and underwent clipping at the time. PAST MEDICAL HISTORY: 1. Severe systolic CHF. 2. Ischemic cardiomyopathy. 3. Atrial fibrillation. 4. Type 2 diabetes. 5. Hypertension. 6. CKD, stage 3. 7. Hyperlipidemia. SOCIAL HISTORY: The patient is a non-smoker, and denies any use of alcohol or drugs. FAMILY HISTORY: The patient has a brother with history of diabetes and heart disease. Also, father with heart disease. Mother with history of liver and colon cancer. PATIENT'S NAME: KUN TRIVEDI [facility] AGE: 71 Y [address] ROOM: [place] [address] [facility] ADMIT DATE: 01/03/2017 History & Physical DISCHARGE DATE: FAMILY PHYSICIAN: Jose Franz MD ATTENDING PHYSICIAN: JACKY CHAMORRO REVIEW OF SYSTEMS: All systems have been reviewed, and were negative except as described in the HPI. MEDICATIONS: Per SEP. ALLERGIES: NO KNOWN DRUG ALLERGIES. PHYSICAL EXAMINATION: VITAL SIGNS: Blood pressure was 117/56, pulse was 70, respiratory rate was 18, and temperature was 97.9. GENERAL: The patient is awake, alert, and oriented x3, in no acute distress. HEENT: Moist mucous membranes. Conjunctival pallor was noted. No scleral icterus. SKIN: Without rash or lesions. CHEST: Clear to auscultation bilaterally. HEART: S1 and S2. Regular rate and rhythm. ABDOMEN: Soft, nontender, and nondistended. Positive bowel sounds. MUSCULOSKELETAL: No joint swelling or redness or tenderness was noted. NEUROLOGICAL: Grossly nonfocal. ASSESSMENT AND PLAN: 1. Acute upper gastrointestinal bleed. The patient is status post EGD today, and was found to have multiple stomach erosions with signs of recent bleed. These sites were cauterized and treated with epinephrine with adequate control of active bleeding. The patient is hemodynamically stable currently. I will check his H and H and basic labs right now, and re-check him again in the morning. We started him on a clear liquid diet, and this is to be advanced as tolerated. As far as long-term anticoagulation, the patient is a very high risk for recurrent bleeds, and I have discussed this with Dr. Brody as well. He is to discontinue Xarelto indefinitely, and follow up with his primary care physician and room worker as outpatient in regard to the long-term management of his anticoagulation needs. We will resume his baby aspirin tomorrow morning. 2. Acute blood loss anemia. This is related to problem #1. We will keep a close eye on blood count and continue his iron supplements. The patient is status post two units of packed cells transfusion at [place]. 3. Severe systolic congestive heart failure, status post ICD placement. The patient has very good outpatient Cardiology followup with [facility] in [place], and is asymptomatic from that standpoint. 4. Type 2 diabetes. The patient is on glimepiride at home. We will hold this and use sliding-scale insulin and monitor. PATIENT'S NAME: KUN TRIVEDI [facility] AGE: 71 Y [address] ROOM: [place] [address] [facility] AD[facility] DATE: 01/03/2017 History & Physical DISCHARGE DATE: FAMILY PHYSICIAN: Jose Franz MD ATTENDING PHYSICIAN: JACKY CHAMORRO 5. Hypertension. We will hold his blood pressure medicines currently in the setting of active gastrointestinal bleed, and slowly resume them after close monitoring. 6. Chronic kidney disease, stage 3. Creatinine was around 2.0 per lab results at [place]. We will keep a close eye on creatinine during his hospital stay. 7. Paroxysmal atrial fibrillation. Continue Coreg, and for now, focus on rate control going forward. Xarelto is to be held indefinitely until he re-visits his room worker and primary care physician as outpatient. It should be okay to continue baby aspirin at this point. 8. Deep venous thrombosis prophylaxis. We will use SCDs. MD MARGOT DAO/farideh /[id number] D: T: 432 HISTORY & PHYSICAL
--- NOTE | ~2017-01-03 | DS ---
PATIENT'S NAME: KUN TRIVEDI [facility] AGE: 71 Y [address] ROOM: [address] [address] LOCATION: GPCU ADMIT DATE: 01/03/2017 Discharge Summary DISCHARGE DATE: 01/04/2017 FAMILY PHYSICIAN: Jose Franz MD ATTENDING PHYSICIAN: Trenton Goetz FINAL DIAGNOSES: 1. Upper gastrointestinal bleed, secondary to erosions and linear ulcerations. 2. Acute blood loss anemia. 3. Chronic systolic congestive heart failure. 4. Paroxysmal atrial fibrillation. 5. Long-term anticoagulation. 6. Diabetes mellitus type 2. 7. Essential hypertension. 8. Stage 3 chronic kidney disease. PROCEDURE: He had an EGD with Dr. Brody on January 03, 2017. HISTORY OF PRESENT ILLNESS: For details of admission, please see the history and physical dictated by Dr. Goetz. In short, the patient transferred from [place] after presenting there with worsening hemoglobin and it was determined to have an upper GI bleed. LABORATORY DATA: On admission, sodium 142, potassium 4.2, chloride 109, CO2 25, BUN 24, creatinine 1.4, magnesium 2.4. On admission, white blood cell count 4, hemoglobin 8, hematocrit 26.5, MCV 90.8, and platelet count 180. On discharge, the patient's white blood cell count 4.4, hemoglobin 8, hematocrit 27.5, and platelet count 175. HOSPITAL COURSE: The patient was accepted in transfer from [place] after presenting there with an upper GI bleed. This has been a recurrent problem for him. He was kept n.p.o. and was seen by Dr. Brody. He was placed on IV Protonix. The patient did undergo an EGD, which showed that he had erosions and linear ulcerations that were oozing. The patient's Xarelto was held. He was started on a diet and overall did well with his diet. He was monitored overnight. His hemoglobin remained stable and he has remained hemodynamically stable. It was felt that he was stable for discharge, but there was a significant amount of discussion regarding his discharge anticoagulation. I spoke with Dr. Bello. It was felt because his CHADS score was 5, it was extremely high-risk for a blood clot. We were also concerned about his ongoing blood loss. I did speak with Dr. Jose Franz regarding some options and the decision was made that he would be off anticoagulation for a week and in a week he would start Eliquis 2.5 mg twice daily. He has an upcoming appointment with Dr. Franz on January 12; at which time, he would PATIENT'S NAME: KUN TRIVEDI [facility] AGE: 71 Y [address] ROOM: [place] [address] LOCATION: GPCU ADMIT DATE: 01/03/2017 Discharge Summary DISCHARGE DATE: 01/04/2017 FAMILY PHYSICIAN: Jose Franz MD ATTENDING PHYSICIAN: Trenton Goetz hemoglobin and GI also did want to re-scope him in a month. DISCHARGE INSTRUCTIONS: He is discharged to home. He will see Dr. Franz on January 15 at 9 a.m., see Dr. Bello on February 15 at 12, he is setup for a repeat EGD on February 01. DISCHARGE MEDICATIONS: 1. Demadex 20 mg daily. 2. Lipitor 40 mg daily. 3. Coreg 25 mg daily. 4. Ipratropium albuterol inhaled twice daily. 5. Tylenol 1000 mg every 6 hours as needed. 6. Aspirin 81 mg at bedtime. 7. Entresto 24 mg/26 mg 1 tablet twice daily. 8. Fexofenadine 180 mg daily as needed. 9. Amaryl 2 mg daily. 10. Flonase 1 spray each nostril daily, but he is to hold if his nose starts bleeding. 11. Allopurinol 300 mg daily. 12. Protonix 40 mg twice daily. 13. Triamcinolone cream applied topically for itching. 14. Ferrous sulfate 325 mg twice daily. 15. Apixaban 2.5 mg twice daily, which he is due to start on January 11. PROGNOSIS: Overall, prognosis at discharge is fair. I did speak at length with him and Dr. Franz. He did voice comfort with proceeding with this plan. BARON CONLEY MD LAW/modl /[id number] CC: MD Anna Villasenor MD d: 01/05/17 0123 t: 01/05/17 1834, DISCHARGE SUMMARY
[~2017-01-03 10:57] MED LIST changes: -BIPAP INH; -ELIQUIS2.5 MG PO; -FEOSOL325 MG PO; -OXYGEN M-15 INH; -POTASSIUM CHLO20 ME1 PO
[2017-01-03] MEDS ORDERED: FEOSOL325 MG PO (11:55)
--- NOTE | 2017-01-03 12:03 | NUR ---
71 Y/O MALE ADMITTED FOR AN UPPER GI BLEED. PT HAS BEEN ASYMPTOMATIC BUT PT DOCTOR HAD CALLED HIM HESTERDAY AFTERNOON AND TOLD HIM TO GO TO THE HOSPITAL HIS HEMOGLOBIN WAS LOW. PT STATES HE HAD 2 UNITS OF BLOOD IN THE [facility] OVERNIGHT AND WAS BROUGHT HERE TO [facility]. [facility] MEDICAL & SURGICAL HISTORY - LITHOTRIPSY, HEART CATH & 3 STENTS PLACED 2003, CABG 2 VESSEL 2009, PACER 2009, THEN REPLACED WITH A PACER/AICD 2009, THEN ANOTHER PACER/AICD PLACED IN 2015. GI BLEEDS CLIPPED TWICE WHEN HE WAS IN THE HOSPITAL OCTOBER 2016. OCC LIGHTHEADEDNESS & DIZZINESS, CHIGNIK LAGOON, SEASONAL ALLERGIES, HTN, HIGH CHOL, CHF, SILENT PR DX 2013, CAD, A-FIB, COPD, CPAP AT [facility] WITH 2L O2, ARTHRITIS, GI BLEEDS, DMII-ORAL MEDS, ANEMIA, RENAL CALCULI IN PAST, NOCTURIA, SKIN CANCER ON NOSE REMOVED IN 2003. PT IS A FORMER SMOKER X40 YRS & QUIT IN 2003. PT STATES HE HAS LOST 15-20 LBS IN THE PAST 6 WEEKS. REPORT GIVEN TO PT PRIMARY CARE NURSE NOELLE GHOSH ADM EDUCATION DONE WITH PT.
--- NOTE | 2017-01-03 17:26 | NUR ---
PATIENT ADMITTED TODAY WITH A GI BLEED, PATIENT HAS ALREADY GOTTEN AN EGD TODAY. PATIENT IS ALERT AND ORIENTED AND AMBULATES TO BATHROOM WITH OUT DIFFICULTY.
[2017-01-03 17:42] LABS: BASOPHIL % 0.5 %; EOSINOPHIL # 0.2 K/uL (0.0-0.5); EOSINOPHIL % 5.1 %; HEMATOCRIT 26.5 % (37.0-53.0); LYMPHOCYTE # 0.6 K/uL (0.8-4.0); LYMPHOCYTE % 15.2 %; MCH 27.4 pg (27.0-34.0); MCHC 30.2 gm/dL (32.0-36.5); MCV 90.8 fl (83.0-98.0); MONOCYTE # 0.4 K/uL (0.0-1.0); MONOCYTE % 10.6 %; MPV 10.2 fl (9.4-12.4); NEUTROPHIL # (ANC) 2.7 K/uL (1.4-9.0); NEUTROPHIL % 68.6 %; NRBC % 0 /100WBC (0-0.00); PLATELET COUNT 180 K/uL (150-450); RBC 2.92 M/uL (3.50-5.50)
[2017-01-03 17:54] LABS: ALBUMIN 3.1 gm/dL (3.5-5.0); ANION GAP 12.2 (10.0-19.0); CALCIUM 8.1 mg/dL (8.5-10.5); CREATININE 1.4 mg/dL (0.6-1.3); MAGNESIUM 2.4 mg/dL (1.8-2.6); POTASSIUM 4.2 mMol/L (3.7-5.1)
[2017-01-04 04:56] LABS: HEMATOCRIT 25.7 % (37.0-53.0); MCHC 31.1 gm/dL (32.0-36.5); MCV 89.9 fl (83.0-98.0); MPV 10.6 fl (9.4-12.4); PLATELET COUNT 175 K/uL (150-450); RBC 2.86 M/uL (3.50-5.50); RDW-CV 20.4 % (11.9-14.6); WBC 4.4 K/uL (4.0-11.0)
--- NOTE | 2017-01-04 05:01 | NUR ---
A/O. HR 70s. SBP 100-120s. AFEBRILE. ROOM AIR DAY. 2L NOC. HOME CPAP UNAVALIBLE. SBA UP TO BATHROOM. NO BM. DENIES PAIN. HOME TODAY DEPENDING ON HGB.
[2017-01-04 05:17] LABS: ANION GAP 10.2 (10.0-19.0); CALCIUM 8.2 mg/dL (8.5-10.5); CREATININE 1.2 mg/dL (0.6-1.3); MAGNESIUM 2.4 mg/dL (1.8-2.6); PHOSPHORUS 3.4 mg/dL (2.5-4.9); POTASSIUM 4.2 mMol/L (3.7-5.1)
[2017-01-04 05:37] LABS: ABSOLUTE NEUTROPHIL CT (ANC) 3.7 K/uL (1.4-9.0); LYMPHOCYTE # 0.4 K/uL (0.8-4.0); LYMPHOCYTE % 8 %; MONOCYTE # 0.2 K/uL (0.0-1.0); SEGMENTED NEUTROPHIL # 3.7 K/uL (1.4-9.0); SEGMENTED NEUTROPHIL % 85 %
--- NOTE | 2017-01-04 12:17 | NUR ---
Introduced self and role of care management to patient. He lives in [place] with his . He states that he is able to do all his own ADL's. He states his will be available to assist as needed on discharge. He plans on returning home on discharge. He denies any needs at this time. Will continue to follow.
[2017-01-04] MEDS ORDERED: ELIQUIS2.5 MG PO (12:55)
--- NOTE | 2017-01-04 13:59 | NUR ---
Discharge Note: VSS on room air. IV d/c'd to L) FA. Up to date on pnemonia vaccine. CHF taching given jenny prior to discharge. Patient was given a vouch for elequis prior to discharge. He will follow up and have outpatient EGD on February 01. Patient verblized understanding of discharge instruction.
[2017-01-25] MEDS ORDERED: POTASSIUM CHLO20 ME1 PO (08:57)
[2017-01-25] MEDS ORDERED: BIPAP INH (09:28)
[2017-01-25] MEDS ORDERED: OXYGEN M-15 INH (09:28)
== END 2017-01-04 14:22 | disposition disaster alternative care site (69) | DRG 378 ==
LOC: GPCU 10:57
PROVIDERS: ADMIT Internal Medicine
PROC: 0D568ZZ Destruction of Stomach, Via Natural or Artificial Opening Endoscopic (ICD-10-PCS; principal; 2017-01-03)
DX: K25.4 Chronic or unspecified gastric ulcer with hemorrhage (principal); D62 Acute posthemorrhagic anemia; I13.0 Hypertensive heart and chronic kidney disease with heart failure and stage 1 through stage 4 chronic kidney disease, or unspecified chronic kidney disease; I50.22 Chronic systolic (congestive) heart failure; I42.9 Cardiomyopathy, unspecified; N18.3 Chronic kidney disease, stage 3 (moderate); E11.22 Type 2 diabetes mellitus with diabetic chronic kidney disease; I48.0 Paroxysmal atrial fibrillation; E78.5 Hyperlipidemia, unspecified; Z95.810 Presence of automatic (implantable) cardiac defibrillator; Z79.01 Long term (current) use of anticoagulants; Z79.82 Long term (current) use of aspirin; Z80.0 Family history of malignant neoplasm of digestive organs
CPT/HCPCS: J0171; J7030

== ENCOUNTER → 2017-02-01 | Day surgery (SDC) | payer MEDICARE, OTHER ==
[~2017-02-01] VITALS: Ht 185.4 cm; Wt 93.7 kg
[~2017-02-01] MED LIST changes: +BIPAP INH; +ELIQUIS2.5 MG PO; +FEOSOL325 MG PO; +OXYGEN M-15 INH; +POTASSIUM CHLO20 ME1 PO
== END | disposition disaster alternative care site (69) ==
LOC: GPOC 01-25 08:00 → GEND 08:08 → GPOC 02-04 08:00
PROC: 0DB98ZX Excision of Duodenum, Via Natural or Artificial Opening Endoscopic, Diagnostic (ICD-10-PCS; principal; 2017-02-01)
PROC: 0DB68ZX Excision of Stomach, Via Natural or Artificial Opening Endoscopic, Diagnostic (ICD-10-PCS; 2017-02-01)
DX: K31.89 Other diseases of stomach and duodenum (principal); M19.90 Unspecified osteoarthritis, unspecified site; E11.9 Type 2 diabetes mellitus without complications; E78.00 Pure hypercholesterolemia, unspecified; I25.10 Atherosclerotic heart disease of native coronary artery without angina pectoris; I11.0 Hypertensive heart disease with heart failure; I50.9 Heart failure, unspecified; I48.91 Unspecified atrial fibrillation; I48.92 Unspecified atrial flutter; J44.9 Chronic obstructive pulmonary disease, unspecified; D64.9 Anemia, unspecified; Z95.1 Presence of aortocoronary bypass graft; Z95.810 Presence of automatic (implantable) cardiac defibrillator; Z98.890 Other specified postprocedural states; Z79.899 Other long term (current) drug therapy; Z79.82 Long term (current) use of aspirin
CPT/HCPCS: J2001; J7030